=== PATIENT | male | born 1960 | race Caucasian/White ===

== ENCOUNTER 2018-07-15 21:49 | Inpatient (IN) ==
--- NOTE | 2018-07-15 22:43 | Emergency Department Note ---
Disposition Clinical Impression: Elevated troponin Chest pain Qualifiers: Chest pain type: precordial pain Qualified Code(s): R07.2 - Precordial pain Disposition: Admitted As Inpatient Condition: Good Referrals: Kita Harding DO [Primary Care Provider] - Forms: ED Satisfaction Letter Time of Disposition: 01:02 General Adult HPI - General Chief complaint: ED Chest Pain Stated complaint: "CP/High BP" Time Seen by Provider: 07/15/18 22:14 Source: patient Mode of arrival: ambulatory Limitations: no limitations - History of Present Illness HPI Narrative: This is a 57-year-old male who comes to the emergency department because about 75 minutes prior to arrival he experienced a headache he would rate as 8 out of 10 in severity located diffusely throughout his head that lasted for about 10 minutes and his decreased so that it is about 2 out of 10 now. He states that he also had slight chest tightness at that time which has almost completely resolved. He reports no shortness of breath. Pain Scale: 2 - Related Data Home Medications Medication Instructions Recorded Confirmed Aspirin [Lo-Dose Aspirin EC] 81 mg PO DAILY 07/04/16 07/16/18 Cetirizine HCl [Zyrtec] 10 mg PO DAILY 08/17/17 08/17/17 Atorvastatin Calcium [Lipitor] 20 mg PO QPM 07/16/18 07/16/18 Centrum Complete Multivit Tab 1 tab PO QDPC 07/16/18 07/16/18 Previous Rx's Medication Instructions Recorded Carvedilol [Coreg] 12.5 mg PO BIDWM #60 tablet 07/12/16 Allergies Allergy/AdvReac Type Severity Reaction Status Date / Time No Known Allergies Allergy Verified 08/17/17 10:58 All systems ED: reviewed and negative except as stated. Cardiovascular: Reports: chest pain Neurological: Reports: headache Past Medical History - Past Medical History Medical history: Reports: hypertension Surgical history: Reports: appendectomy, cholecystectomy, colectomy, herniorrhaphy, vasectomy, other Psychiatric history: Reports: no psych history - Social History Smoking Status: Never smoker Smokeless Tobacco Status: No Alcohol use: Reports: none Drug use: Reports: none Physical Exam - General Limitations: no limitations General appearance: alert, in distress (In minimal distress) - Head Head exam: atraumatic, normocephalic, normal inspection - Eye Eye exam: Present: normal appearance, PERRL, EOMI - Chest Chest inspection: Present: normal inspection, symmetric chest wall rise - Respiratory Respiratory exam: Present: normal lung sounds bilaterally - Cardiovascular Cardiovascular exam: Present: regular rate, normal rhythm, normal heart sounds - Abdominal Exam Abdominal exam: Present: soft, Non-Tender. Absent: tenderness, distention, guarding, rebound, rigidity - Neurological Exam Neurological exam: Present: alert, oriented X3, CN II-XII intact. Absent: motor sensory deficit - Psychiatric Psychiatric exam: Present: normal affect, normal mood - Skin Skin exam: Present: warm, dry, intact, normal color Course Course Narrative: This is an otherwise well-appearing 57-year-old male with symptoms concerning for subarachnoid hemorrhage or acute coronary syndrome. Vital Signs Temperature 98.2 F 07/15/18 21:52 Pulse Rate 72 07/15/18 21:52 Respiratory Rate 16 07/15/18 21:52 Blood Pressure 183/104 07/15/18 21:52 O2 Sat by Pulse Oximetry 98 07/15/18 21:52 Temperature 98.2 F 07/15/18 22:00 Pulse Rate 60 07/16/18 00:58 Respiratory Rate 20 07/16/18 00:58 Blood Pressure 133/98 07/16/18 00:58 O2 Sat by Pulse Oximetry 98 07/16/18 00:58 Oxygen Delivery Oxygen Delivery Room Air Medical Decision Making - [facility] Narrative Medical decision making narrative: This is a 57-year-old male with an elevated troponin. Because of the concern for non-ST elevation TX, heparin bolus was given, and the infusion was also started. He already took aspirin. I discussed his case with the on-call hospitalist, who accepted him for observation - Lab Data Lab results reviewed: Yes I reviewed the patient's lab results. Lab results narrative: CBC was unremarkable BMP was unremarkable Troponin was slightly elevated at 0.2 Result diagrams: 07/15/18 22:19 07/15/18 22:19 Lab Results 07/15/18 07/15/18 Range/Units 22:19 22:19 WBC 7.7 (4.3-11.1) K/mcL RBC 5.00 (4.19-5.50) M/mcL Hgb 16.2 (12.9-16.9) g/dL Hct 44.7 (37.5-50.1) % MCV 89.4 (83.0-100.0) fL MCH 32.4 (28.0-33.3) pg MCHC 36.2 H (31.6-35.5) g/dL RDW 11.6 (11.5-14.5) % Plt Count 184 (140-400) K/mcL MPV 10.2 (9.4-12.4) fL Immature Gran % 0.3 (0-4) % Seg Neutrophils % 61.5 % Lymphocytes % 26.3 % Monocytes % 9.4 % Eosinophils % 2.2 % Basophils % 0.3 % Neutrophils # 4.8 (1.6-8.9) K/mcL Lymphocytes # 2.0 (0.6-4.6) K/mcL Monocytes # 0.7 (0.0-1.3) K/mcL Eosinophils # 0.2 (0.0-0.6) K/mcL Basophils # 0.0 (0.0-0.2) K/mcL Sodium 136 (136-145) mEq/L Potassium 3.9 (3.5-5.1) mEq/L Chloride 104 (98-107) mEq/L Carbon Dioxide 23 (23-29) mEq/L BUN 20 (6-20) mg/dL Creatinine 1.00 (0.70-1.30) mg/dL Est GFR ( Amer) > 60 (> 60) Est GFR (Non-Af Amer) > 60 (> 60) BUN/Creatinine Ratio 20 (6-26) Glucose 115 H (70-105) mg/dL Calculated Osmolality 286 (280-300) Calcium 9.7 (8.6-10.3) mg/dL Troponin I 0.20 H* (< 0.04) ng/mL - Radiology Data Radiology results reviewed: Yes I reviewed the patient's radiology results. CT brain showed no abnormalities Chest x-ray showed no abnormalities - EKG Data EKG #1 EKG attestation: Yes I reviewed and interpreted this EKG. EKG results narrative: ECG shows sinus rhythm, 73 bpm, normal intervals, normal axis, slight ST elevations in 3 and aVF, no T-wave abnormalities, no reciprocal changes, prior EKG showing early repolarization EKG #2 EKG attestation: Yes I reviewed and interpreted this EKG. EKG results narrative: ECG shows sinus rhythm, 57 bpm, normal intervals, normal axis, no ST or T-wave abnormalities, the less than 1 mm elevation seen 90 minutes ago are now gone Critical Care Time Critical Care Time: Yes Total Critical Care Time: 20 Attestation: 20 minutes of critical care time was invested independent of separately billable procedures
[2018-07-15 22:55] LABS: Basophils % 0.3 %; Eosinophils # 0.2 K/mcL (0.0-0.6); Eosinophils % 2.2 %; Hematocrit 44.7 % (37.5-50.1); Hemoglobin 16.2 g/dL (12.9-16.9); Immature Granulocytes % 0.3 % (0-4); Lymphocytes % 26.3 %; Mean Corpuscular HGB Conc 36.2 g/dL (31.6-35.5); Mean Corpuscular Hemoglobin 32.4 pg (28.0-33.3); Mean Corpuscular Volume 89.4 fL (83.0-100.0); Mean Platelet Volume 10.2 fL (9.4-12.4); Monocytes # 0.7 K/mcL (0.0-1.3); Monocytes % 9.4 %; Neutrophils # 4.8 K/mcL (1.6-8.9); Platelet Count 184 K/mcL (140-400); Red Cell Distribution Width 11.6 % (11.5-14.5); Segmented Neutrophils % 61.5 %
[2018-07-15 23:10] LABS: BUN/Creatinine Ratio 20 (6-26); Blood Urea Nitrogen 20 mg/dL (6-20); Calcium 9.7 mg/dL (8.6-10.3); Carbon Dioxide 23 mEq/L (23-29); Chloride 104 mEq/L (98-107); Glucose 115 mg/dL (70-105); Osmolality,Calculated 286 (280-300); Potassium 3.9 mEq/L (3.5-5.1); Sodium 136 mEq/L (136-145); eGFR For Non-African Americans > 60 (> 60)
[2018-07-15] MEDS ORDERED: *HR* Heparin 5,000 UNIT/ML VIAL IVP ONE (23:20)
[2018-07-15] MEDS ORDERED: Aspirin 325 MG TABLET PO ONE (23:39)
[2018-07-16] MEDS ORDERED: Heparin 25,000 UNIT/500 ML D5W 25,000 UNIT/500 ML BAG IVC SCH (00:45)
[2018-07-16 01:19] LABS: INR 0.9; Prothrombin Time 10.4 Seconds (9.4-12.1)
[2018-07-16 01:22] LABS: Activated Partial Thrombo Time 32.9 Seconds (26.0-36.0)
[2018-07-16 01:27] LABS: Heparin anti-factor XA UFH 0.03 IU/mL (0.30-0.70)
--- NOTE | 2018-07-16 01:28 | Internal Med History&Physical ---
<Neel Keating Vi - Last Filed: 07/16/18 02:18> Date of Encounter: 07/16/18 Time of Encounter: 01:27 Internal Medicine - H&P: HPI Chief complaint: Headache/Chest Pain Admitted From: Emergency Dept Plans for Post Hospital Care: Home History of present illness: Mr. Urrutia is a 57 year old male with a past medical history of hypertension, hyperlipidemia, hemicolectomy. He presented to the emergency department tonight for headache and chest pain. He states he was sitting at his desk working around 8:00 when he all of a sudden felt very tense and flushed and he felt like his muscles were tight across his chest and he had a severe headache. He denies any shortness of breath, diaphoresis, or radiation of chest sensation. He checked his blood pressure home and found it to be elevated in the 180s over 110s. He took an extra baby aspirin and that should dose of Coreg and called a friend who insisted that she take him to the emergency department. In the emergency department he was given another dose of 325 aspirin and a heparin bolus. In the emergency department chest x-ray and head CT showed no acute process. However EKG showed normal sinus rhythm with uncertain ST elevation in lateral leads. Repeat EKGs demonstrated similar findings. CBC was in normal limits as was BMP, however troponin was elevated to 0.2. The patient does have a father with a history of CABG. The patient does not smoke, rarely drinks, does not use drugs. He also states he exercises consistently. Past Med Surg Social Fam HX - Past Medical History Medical history: hypertension Additional medical history: diverticulitis Psychiatric history: no psych history - Past Surgical History Surgical History: appendectomy, cholecystectomy, colectomy, herniorrhaphy, vasectomy, other Additional surgical history: diverticulitis, BILAT INGUINAL HERNIA REPAIR, HYDROCEILE, VASECTOMY - Social History Smoking Status: Never smoker Smokeless Tobacco Status: No Alcohol use: none Drug use: none - Family History Father Family Member Ethnicity: Non- Living Status: Hx Family Cardiac Disorders: Yes (CABG) Hx Family GI Disorders: Yes Mother Hx Family Cardiac Disorders: No Internal Medicine - H&P: Meds Aspirin [Lo-Dose Aspirin EC] 81 mg PO DAILY 07/04/16 [History] Carvedilol [Coreg] 12.5 mg PO BIDWM #60 tablet 07/12/16 [Rx] Cetirizine HCl [Zyrtec] 10 mg PO DAILY 08/17/17 [History] Atorvastatin Calcium [Lipitor] 20 mg PO QPM 07/16/18 [History] Centrum Complete Multivit Tab 1 tab PO QDPC 07/16/18 [History] 3 Allergy/AdvReac Type Severity Reaction Status Date / Time No Known Allergies Allergy Verified 08/17/17 10:58 All Systems PM: A 10-system review of systems was performed and is negative for pertinent findings except as documented above in the HPI. - Constitutional Vitals: Temp Pulse Resp BP Pulse Ox 98.2 F 60 20 133/98 98 07/15/18 22:00 07/16/18 00:58 07/16/18 00:58 07/16/18 00:58 07/16/18 00:58 Exam: Patient in no acute distress Alert and oriented 3 Affect normal Cranial nerves II through XII intact Mucous membranes moist Heart in regular rate and rhythm without murmur or gallop Lungs clear to auscultation bilaterally without wheeze or rales or rhonchi Abdomen soft and nontender with normal bowel sounds present, there is a large midline postsurgical scar Right hand is mildly swollen without pitting, the patient says it has been there for the past several years Bilateral lower extremities are 1+ pitting edematous Skin warm and dry Internal Med - H&P Results - Labs CBC & Chem 7: 07/15/18 22:19 07/15/18 22:19 - Assessment and plan (1) Chest pain Current Visit: Yes Status: Resolved Assessment and plan: Patient presented with chest pain in the setting of hypertension Patient has no cardiac history EKG suspicious for ST elevation Troponin elevated at 0.2 Differentials include ACS and hypertensive emergency Symptoms resolved in the ED Blood pressure currently stable Plan Aspirin and heparin bolus given in the ED Heparin drip started Continuous cardiac monitoring Cardiology consultation in the morning Trend troponins every 6 hours Qualifiers: Chest pain type: precordial pain Qualified Code(s): R07.2 - Precordial pain (2) Elevated troponin Current Visit: Yes Status: Acute Assessment and plan: Plan as seen above (3) Abnormal EKG Current Visit: Yes Status: Acute Assessment and plan: Plan as seen above (4) Hypertension Current Visit: Yes Status: Chronic Assessment and plan: Patient has history of chronic hypertension managed with home carvedilol We will continue carvedilol here Blood pressure currently stable Qualifiers: Hypertension type: essential hypertension Qualified Code(s): I10 - Essential (primary) hypertension (5) Hyperlipidemia Current Visit: No Status: Chronic Assessment and plan: Patient mentions history of hyperlipidemia Patient takes Lipitor at home We will continue here Qualifiers: Hyperlipidemia type: unspecified Qualified Code(s): E78.5 - Hyperlipidemia , unspecified (6) Headache Current Visit: Yes Status: Resolved Assessment and plan: Patient presented with headache in the setting of elevated blood pressure Patient does not have history of the symptoms Headache resolved in the ED with improvement in blood pressure Differentials include hypertensive emergency and cerebral infarct Head CT was negative and patient does not exhibit any focal deficits Continue to monitor and control blood pressure Qualifiers: Headache type: unspecified Headache chronicity pattern: acute headache Intractability: not intractable Qualified Code(s): R51 - Headache - Time Spent With Patient Total time spent is greater than 50% in coordination of care (as documented) at patient's floor/unit and/or counseling patient: <Jb Garza A - Last Filed: 07/16/18 02:52> Date of Encounter: 07/16/18 Internal Medicine - H&P: HPI History of present illness: Mr. Urrutia is a 57 year old male All Systems PM: A 10-system review of systems was performed and is negative for pertinent findings except as documented above in the HPI. - Constitutional Vitals: Temp Pulse Resp BP Pulse Ox 98.5 F 62 16 161/106 98 07/16/18 01:37 07/16/18 01:37 07/16/18 01:37 07/16/18 01:37 07/16/18 01:37 Internal Med - H&P Results - Labs CBC & Chem 7: 07/15/18 22:19 07/15/18 22:19 - Assessment and plan (1) Elevated troponin Current Visit: Yes Status: Acute (2) Chest pain Current Visit: Yes Status: Resolved Qualifiers: Chest pain type: precordial pain Qualified Code(s): R07.2 - Precordial pain (3) Abnormal EKG Current Visit: Yes Status: Acute (4) Hypertension Current Visit: Yes Status: Chronic Qualifiers: Hypertension type: essential hypertension Qualified Code(s): I10 - Essential (primary) hypertension (5) Hyperlipidemia Current Visit: No Status: Chronic Qualifiers: Hyperlipidemia type: unspecified Qualified Code(s): E78.5 - Hyperlipidemia , unspecified (6) Headache Current Visit: Yes Status: Resolved Qualifiers: Headache type: unspecified Headache chronicity pattern: acute headache Intractability: not intractable Qualified Code(s): R51 - Headache - Time Spent With Patient Total time spent is greater than 50% in coordination of care (as documented) at patient's floor/unit and/or counseling patient: - Attending Attestation Patient seen and examined. Chart reviewed. Case discussed with resident. Agree with assessment and plan. In short patient is a pleasant 57-year-old male with a past medical history of hypertension, hyperlipidemia who presented to the ED after a headache and what he believed to be a sensation that his blood pressure was high described as increased pressure in his head and neck. Patient denies any chest pain per se. Patient decided to come into the hospital today because his is out of town and did not to be at home alone with current symptoms. Upon arrival patient was found to have a elevated troponin of 0.2. EKG was performed which showed less than [address] elevations in leads 1, V3, V4 and V5. Patient is a never smoker, drinks beer occasionally on the weekend and exercises regularly. He does have a family history of coronary artery disease in his father who underwent CABG at the age of 69. We will admit patient for observation and rule out ACS. We will trend troponin. Obtain echocardiogram. Cardiology consult due to abnormal EKG and elevated troponins.
[2018-07-16] MEDS ORDERED: Naloxone 0.4 MG/ML INJ IVP PRN (01:29)
[2018-07-16 05:15] LABS: Basophils % 0.6 %; Eosinophils # 0.2 K/mcL (0.0-0.6); Eosinophils % 2.6 %; Hematocrit 43.5 % (37.5-50.1); Hemoglobin 15.7 g/dL (12.9-16.9); Immature Granulocytes % 0.3 % (0-4); Lymphocytes # 2.1 K/mcL (0.6-4.6); Lymphocytes % 29.5 %; Mean Corpuscular HGB Conc 36.1 g/dL (31.6-35.5); Mean Corpuscular Hemoglobin 31.9 pg (28.0-33.3); Mean Corpuscular Volume 88.4 fL (83.0-100.0); Mean Platelet Volume 10.1 fL (9.4-12.4); Monocytes # 0.6 K/mcL (0.0-1.3); Monocytes % 7.9 %; Neutrophils # 4.1 K/mcL (1.6-8.9); Platelet Count 166 K/mcL (140-400); Red Blood Count 4.92 M/mcL (4.19-5.50); Red Cell Distribution Width 11.7 % (11.5-14.5); Segmented Neutrophils % 59.1 %
[2018-07-16 05:36] LABS: BUN/Creatinine Ratio 20 (6-26); Blood Urea Nitrogen 16 mg/dL (6-20); Calcium 9.4 mg/dL (8.6-10.3); Carbon Dioxide 23 mEq/L (23-29); Chloride 107 mEq/L (98-107); Glucose 104 mg/dL (70-105); Osmolality,Calculated 289 (280-300); Potassium 3.6 mEq/L (3.5-5.1); Sodium 139 mEq/L (136-145); eGFR For Non-African Americans > 60 (> 60)
--- NOTE | 2018-07-16 06:53 | Event Note ---
Date of Encounter: 07/16/18 Time of Encounter: 06:52 Was notified by the nurse for a jump and troponin from 0.2-8.2. Repeat vitals were stable from side from a mildly elevated blood pressure. Patent was asymptomatic and chest pain-free. A repeat EKG was performed which showed no ST or T-wave changes. Cardiology was consulted and will have patient seen early in the morning. Patient currently nothing by mouth.
--- NOTE | 2018-07-16 07:53 | Cardiology Consult Note ---
<Shon Washington - Last Filed: 07/16/18 08:51> Date of Encounter: 07/16/18 Time of Encounter: 07:50 Assessment and Plan (1) NSTEMI (non-ST elevated myocardial infarction) Current Visit: Yes Status: Acute Per Cardiology: Initial troponin 0.20 and now up to 8.20. Currently chest pain-free. On aspirin, statin, beta sienna, heparin drip. Chest x-ray stable. Head CT with no acute findings. Echo pending. I had lengthy discussion with patient and and recommendations proceed with left heart catheterization for further ischemic evaluation. They are agreeable to proceed. Discussed with Dr. Brooke and Dr. Yesenia Silva. Further recommendations after echo and catheterization. Cardiac rehabilitation consult placed. Discussion w patient/family: The assessment and plan as outlined above was discussed with the patient and/or family members who expressed understanding and agreement. All questions were answered. Thank you for involving us in the care of your patient. Please call with any questions. History of Present Illness Consult date: 07/16/18 Requesting physician: Jb Garza Consult reason: NSTEMI Chief complaint: CP History of present illness: Mr. Urrutia is a 57 year old male with relevant past medical history of hypertension and recent diagnosis of hyperlipidemia. Cardiology consult for chest pain and non-STEMI. Patient denies any concerns or complaints prior to event yesterday evening. He reports his at home pain pills and had sudden onset of bilateral neck burning sensation with radiation to his head with headache. He denied any chest pain. He reports about 8 out of 10 overall discomfort. He reports blood pressure systolically was in the 170s and took an extra dose of his beta sienna and took aspirin. He reports total time. If symptoms about 45 minutes. He denied any palpitations, shortness of breath, dizziness. Denies any recent infectious process. He reports active about 3 times per week able to bike up to about 30 miles. 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 He reports family history with father with CAD with CABG at age 69. He denies any smoking history. Denies any known history of diabetes mellitus. Denies any active bleeding or blood loss. Currently denies any discomfort or symptoms. Past Med Surg Social Fam HX - Past Medical History Attestation: Yes The following information was validated with the patient. Source: patient, old records reviewed Medical history: hyperlipidemia, hypertension Additional medical history: diverticulitis Psychiatric history: no psych history - Past Surgical History Surgical History: appendectomy, cholecystectomy, colectomy, herniorrhaphy, vasectomy, other Additional surgical history: diverticulitis, BILAT INGUINAL HERNIA REPAIR, HYDROCEILE, VASECTOMY - Social History Smoking Status: Never smoker Smokeless Tobacco Status: No Alcohol use: none Drug use: none - Family History Mother Hx Family Cardiac Disorders: No Father Family Member Ethnicity: Non- Living Status: Cause of : Pulmonary Embolus Hx Family Cardiac Disorders: Yes (CABG) Hx Family GI Disorders: Yes Medications and Allergies Aspirin [Lo-Dose Aspirin EC] 81 mg PO DAILY 07/04/16 [History] Carvedilol [Coreg] 12.5 mg PO BIDWM #60 tablet 07/12/16 [Rx] Cetirizine HCl [Zyrtec] 10 mg PO DAILY 08/17/17 [History] Atorvastatin Calcium [Lipitor] 20 mg PO QPM 07/16/18 [History] Multivit-Min/FA/Lycopen/Lutein [A Thru Z Select Multivit Tab] 1 tab PO DAILY [History] 3 Allergy/AdvReac Type Severity Reaction Status Date / Time No Known Allergies Allergy Verified 08/17/17 10:58 All Systems Review: The remainder of the systems were reviewed and are negative - Constitutional Constitutional: headache(s) - Cardiovascular Cardiovascular: as per HPI Physical Examination Vital Signs, Last 4 Hours Temp Pulse Resp BP Pulse Ox 07/16/18 07:00 98.3 F 76 15 120/81 97 07/16/18 06:04 74 14 161/96 98 General: Conversant, No Apparent Distress HEENT: Atraumatic, Normocephaly, Mucus Membranes Moist Neck: No JVD, Normal carotid pulses Cardiac: Reg Rate and Rhythm, Normal S1 and S2, No Murmur Lungs: Normal Breath Sounds, No Wheeze, Rales, Rhonchi Neuro: Alert and responsive, No focal deficits noted Abdomen: Soft, Non-Tender Skin: No rashes noted on visualized skin Musculoskeletal: No Chest Wall Tenderness Extremities: No Clubbing, No Cyanosis, No Edema, Normal Pulses Results 07/16/18 04:09 07/16/18 04:09 Lab Results Laboratory Tests 07/15/18 07/16/18 07/16/18 22:19 00:41 04:09 WBC Hgb Hct INR 0.9 Creatinine Est GFR (Non-Af Amer) Troponin I 0.20 H* 8.10 H* 07/16/18 07/16/18 04:09 04:09 WBC 6.9 Hgb 15.7 Hct 43.5 INR Creatinine 0.81 Est GFR (Non-Af Amer) > 60 Troponin I ITS Impressions Chest X-Ray 07/15/18 22:29 IMPRESSION: No acute abnormality detected. D/ / Joe Alfonso MD / Joe Alfonso MD Interpreting Provider: Joe Alfonso MD Head CT 07/15/18 22:29 IMPRESSION: No acute intracranial abnormality. D/ / Joe Alfonso MD / Joe Alfonso MD Interpreting Provider: Joe Alfonso MD Active Medications Aspirin (Aspirin Ec) 81 mg PO DAILY KEYONNA Stop: 01/15/19 09:01 Atorvastatin Calcium (Lipitor) 20 mg PO QPM KEYONNA Stop: 01/15/19 18:01 Carvedilol (Coreg) 12.5 mg PO BIDWM KEYONNA PRN Reason: Protocol Stop: 01/15/19 08:01 Last Admin: 07/16/18 06:34 Dose: 12.5 mg Heparin Sodium/Dextrose (Heparin 25,000 Unit/500 Ml D5w) 25,000 unit in 500 mls @ 27.992 mls/hr IVC .[id number] KEYONNA; 14 UNIT/KG/HR PRN Reason: Protocol Stop: 01/15/19 00:46 Last Admin: 07/16/18 01:37 Dose: 14 unit/kg/hr, 27.992 mls/hr Naloxone HCl (Narcan) 0.4 mg IVP Q2MIN PRN PRN Reason: SEE COMMENTS Stop: 01/15/19 01:30 - Imaging and Cardiology Chest Xray: report reviewed Echo: pending Cardiac cath: pending - EKG Interpretation EKG results cardiology: personally reviewed (reviewed with Dr. Brooke), sinus rhythm Consult Discharge Plan - Plan Referrals: Kita Harding, DO [Primary Care Provider] - 07/24/18 9:30 am <Jim Brooke - Last Filed: 07/16/18 17:05> Date of Encounter: 07/16/18 - Attending Attestation Patient was seen and evaluated independently by me. Findings, assessment and plan were discussed at length with patient, questions answered. Agree with nurse practitioner's documentation. Addition as follows, 57 yo physically active CM ho HTN and HLD. P/w acute onset of neck burning and headache at rest last night with BP 170s/100s, which subsided afte ASA, then recurred on climbing stairs. ECG dynamic change am, loss of R on V1/2 with qR pattern on V2. Trop max 8, downtrending. However, LHC revealed no obstructive epicardial lesion, TTE nl EF w/o RMWA, RV fnx nl. A: NSTEMI without obstructive epicardial CAD, ddx plaque rupture with resolution of thrombosis, susana-plaque spasm or induced by vasoactive toxin, no clear angiographical evidence of SCAD HTN HLD P: repeat ECG, tele overnight DAPT at least 1 month, f/u Cardiology clinic for possible longer duration if no bleeding (ideally 1 yr) high intensity statin ask pt for home BP monitoring Jim Brooke MD, PhD Assessment and Plan Discussion w patient/family: The assessment and plan as outlined above was discussed with the patient and/or family members who expressed understanding and agreement. All questions were answered. Thank you for involving us in the care of your patient. Please call with any questions. History of Present Illness History of present illness: Mr. Urrutia is a 57 year old male All Systems Review: The remainder of the systems were reviewed and are negative Physical Examination Vital Signs, Last 4 Hours Pulse Resp BP Pulse Ox 07/16/18 15:00 64 16 123/81 96 Results 07/16/18 04:09 07/16/18 04:09
[2018-07-16] MEDS: Aspirin Enteric Coated 81 MG Tablet PO SCH (07:59)
[2018-07-16] MEDS ORDERED: 0.9 % Sodium Chloride 1,000 ML ONE ×2 (10:37→10:42)
[2018-07-16] MEDS ORDERED: ISOVUE-370 200 ML INFUS..BTL IV ONE (10:37)
[2018-07-16] MEDS ORDERED: *HR* Heparin 10,000 UNIT/10 ML VIAL ONE (10:37)
[2018-07-16] MEDS ORDERED: Nitroglycerin 1,000 MCG/10 ML VIAL IV ONE (10:37)
[2018-07-16] MEDS ORDERED: Heparin 1,000 UNITS/500 mL 500 ML ONE (10:37)
--- NOTE | 2018-07-16 13:16 | Pre-Sedation Evaluation ---
Pre-sedation evaluation - Pre-sedation checklist Date of procedure: 07/16/18 Procedure: left heart cath Recent Vitals: Last Vital Signs Temp 98.3 F 07/16/18 07:00 Pulse 76 07/16/18 07:00 Resp 15 07/16/18 07:00 BP 120/81 07/16/18 07:00 Pulse Ox 97 07/16/18 07:00 H&P (including ROS) documented in medical record: Yes Previous reaction to sedatives/anesthetics: No Dietary Status: NPO after Midnight Airway Assessment: Patient can open mouth completely, TMJ function normal, Micrognathia (under-bite, receding chin) absent, Neck with adequate range of motion Dentition: No loose teeth or bridges Possible difficult airway: No ASA Classification *see protocol: CLASS II-Mild systemic disease Plan of Care: Pt appropriate candidate for procedure/moderate/conscious sedation , Risks/benefits of procedure/sedation discussed w/ patient/family Cardiac Registry (Cardio Only) - Functional Capacity Functional Capacity: < 4 METS - Clincal Frailty Scale Clinical Frailty Scale: Vulnerable
[2018-07-16] MEDS ORDERED: *HR* FentaNYL (PF) 100 MCG/2 ML VIAL ONE (13:38)
[2018-07-16] MEDS ORDERED: *HR* Midazolam HCl 2 MG/2 ML VIAL ONE ×2 (13:38→13:49)
--- NOTE | 2018-07-16 14:29 | Invasive Diagnostic Lab Proc ---
Name: Steven Urrutia Date of Study: 07/16/2018 Date: 1960 Ht: 72.0in Medical Record#: [id number] Age: 57 Wt: 216.49lb Gender: Male BSA: 2.2 Order #: [id number] BMI: 29.32 Physicians Procedure Physician: Laura Silva MD, [facility] Referring MD: Referring MD: Staff Name Position Time In SilverioRc RN Grocery Store Clerk 01:36 PM Isabel Barrett RT (R) Scrub 01:36 PM Rehan Willis RN Monitor 01:36 PM Indications Indication Non-Stemi Procedures Performed Procedure L HRT ARTERY/VENTRICLE ANGIO Pre-Procedure Checklist Informed consent is complete signed and on chart. H&P is on chart. ID band is on and ID verified with patient. Patient NPO for procedure The procedure was described for the patient and questions were answered. Blood Pressure: 120/81 ECG is on chart. Plan of Care Patient will tolerate the procedure without complications. Adequate level of comfort will be maintained. Hemodynamics will remain stable Patient will recover from procedure without complications. Respiratory function will be maintained. Cardiac rhythm will remain stable. Patient temperature will be maintained. Patient and/or family have verbalized understanding of the procedure. Patient Education Chief Complaint/Reason for Test: Cardiac Cath Developmental Category: Adult (18-64 years) Developmentally Appropriate for Age: Yes Learning Barriers: None Education Needs: Procedure Education Method: Verbal Information Taught: Cardiac Cath Educational Evaluation: Able to repeat information Intravenous Access Time IV Size Location DC'd Fluid/Drip Rate Units RN Started with 20g 1 1/4" Rt Antecubital 0.9NaCl 25 ml/hr Allergies No Known Allergies Vital Signs Time BP (mmHg) HR (bpm) O2 Sat. RR (bpm) LOC 09:14 AM 120 / 81 75 97 % 15 5 = Fully awake and oriented or at pre-proc level 01:45 PM / % 5 = Fully awake and oriented or at pre-proc level 01:45 PM / % 4 = Oriented but drowsy 01:38 PM 161 / 111 82 98 % 17 01:43 PM 156 / 101 84 99 % 10 01:48 PM 139 / 99 82 99 % 7 01:53 PM 129 / 87 74 98 % 9 01:58 PM 133 / 92 82 98 % 9 02:03 PM 137 / 91 82 98 % 19 02:08 PM 124 / 79 75 97 % 11 Procedural Medications Time Medication Dose Units Method Given By 01:44 PM Oxygen 2 L/min nasal cannula Rc Sawyer RN 01:44 PM Versed 2 mg Intravenous Rc Sawyer RN 01:44 PM Fentanyl 50 mcg Intravenous Rc Sawyer RN 01:49 PM Versed 1 mg Intravenous Rc Sawyer RN 01:49 PM Fentanyl 25 mcg Intravenous Rc Sawyer RN 01:51 PM Lidocaine 2% 14 ml Subcutaneous Laura Silva MD, [facility] ASA Classification: CLASS II- Mild systemic disease (i.e. well-controlled diabetes, hypertension, asthma, cigarette smoking) Santo Score Preprocedure Postprocedure Activity 2- Moves 4 extremities sustained head lift Activity Circulation 2- SBP +/= 20 points of pre-anesthetic level Circulation Consciousness 2- Awake and alert oriented x 3 Consciousness O2 Saturation 2- Able to maintain O2 satruation of 92% on room air O2 Saturation Respiratory 2- Able to deep breathe and cough well Respiratory Total Score 10 Total Score Contrast Agent: Isovue Diagnostic Contrast: 76 ml Total Contrast: 76 ml Fluoro Dose: 2837 mGy Procedure Log Time Note Enter By 11:27 AM CathStat 01:36 PM [facility] metallurgical laboratory assistant 2 [facility] Rc Sawyer RN Position: Grocery Store Clerk [facility]: 13:36 [facility] PM Isabel Barrett RT (R) Position: Scrub Time in: 13:36 [facility] 01:37 PM Rehan Willis RN Position: Monitor Time in: 13:36 [facility] :37 PM Patient charges- Angio tray pack, Navilyst 3mm J, Pulse Oximetry and ACIST tubing and transducer [facility] 01:37 PM Vitals capture started with the following parameters, Patient=Adult, Interval=5 min, Initial Kskcchxa=678 mmHg, Deflation Rate=5 mmHg, Cuff placed on Right Arm 01:38 PM HR=82 bpm, HBSR=143/111 mmhg, SpO2=98.0 %, Resp=17 B/min, EtCO2=31 mmHg 01:43 PM HR=84 bpm, MSQI=525/101 mmhg, SpO2=99.0 %, Resp=10 B/min, EtCO2=29 mmHg 01:44 PM Hair removed from procedure site in procedure lab using clippers. Bilateral groin prepped with Chloraprep by Rehan Willis RN, then patient was draped. Skin intact. PM Physican responded and notified patient is ready :44 [facility] PM ASA Class CLASS II- Mild systemic disease (i.e. well-controlled diabetes, hypertension, asthma, cigarette smoking) [facility] PM Meet and greet completed PM Sign in performed according to hospital policy. Informed consent was obtained. PM Procedure start :[facility] PM Time: :44 Oxygen on at 2 L/min per nasal cannula by Rc Sawyer RN [facility] PM Time: :44 Versed 2 mg Intravenous Given by Rc Sawyer RN [facility] PM Time: :44 Fentanyl 50 mcg Intravenous Given by Rc Sawyer RN [facility] PM Time: :44 Patient comfortable and pain free: Yes [facility] 45 PM Time: :45LOC: 5 = Fully awake and oriented or at pre-proc level [facility] 45 PM Recorded ECG: HR=81 Condition=Condition 1 :45 PM Case Start :46 PM Clinical Presentation: Non-STEMI :48 PM HR=82 bpm, RZKB=006/99 mmhg, SpO2=99.0 %, Resp=7 B/min, EtCO2=35 mmHg, Comment=NSR :49 PM Time: 13:49 Versed 1 mg Intravenous Given by Rc Sawyer RN [facility] :49 PM Time: 13:49 Fentanyl 25 mcg Intravenous Given by Rc Sawyer RN [facility] :51 PM Time out was performed according to hospital policy. Conscious sedation and anesthesia was achieved (see medication log with in this report above) :52 PM Time: 13:51 14 ml Lidocaine 2% to right groin Subcutaneous Given by Laura Silva MD, [facility]:52 PM Access obtained by percutaneous puncture. 5Fr 10cm Terumo [place] sheath placed in right Femoral artery. [id number] jcallihan 01:53 PM 5Fr FL 4 catheter inserted over the wire DN jcallihan 01:53 PM HR=74 bpm, RVJD=016/87 mmhg, SpO2=98.0 %, Resp=9 B/min, Comment=NSR 01:53 PM Recorded Pressure: Ao, HR=75, Condition=Condition 1 (Aorta) Ao 127/87/106 01:53 PM LCA angiography performed in multiple views. [email or web address] 01:55 PM Catheter removed [email or web address] 01:55 PM Coronary Dominance: right [email or web address] 01:55 PM 5Fr FR 4 catheter inserted over the wire DN jcallihan 01:56 PM RCA angiography performed in multiple views. [email or web address] 01:57 PM Recorded Pressure: Ao, HR=75, Condition=Condition 1 (Aorta) Ao 103/44/80 01:57 PM Catheter removed jcallihan 01:57 PM 5Fr Pigtail catheter inserted over the wire DN jcallihan 01:57 PM Catheter crossed the aortic valve and was selectively placed in the left ventricle. Pressures recorded on pullback for left heart catheterization. jcallihan 01:58 PM Bolus angiogram of left Ventricle complete: 8 ml/sec for a total of 24 mls jcallihan 01:58 PM HR=82 bpm, XKMM=226/92 mmhg, SpO2=98.0 %, Resp=9 B/min, Comment=NSR 01:59 PM Pressure channel 1 zeroed. 01:59 PM Recorded Pressure: LV, HR=86, Condition=Condition 1 (Left Ventricle) LV 133/-13/5 01:59 PM Recorded Pressure: LV, Ao, HR=82, Condition=Condition 1 (Left Ventricle) LV 107/14/17, (Aorta) Ao 111/80/96 02:00 PM Time: 13:45LOC: 4 = Oriented but drowsy jcallihan 02:00 PM Time: 13:45 Patient comfortable and pain free: Yes [email or web address] 02:00 PM Catheter removed jcallihan 02:03 PM HR=82 bpm, MTMY=540/91 mmhg, SpO2=98.0 %, Resp=19 B/min, EtCO2=36 mmHg, Comment=NSR 02:04 PM Recorded Pressure: Ao, HR=84, Condition=Condition 1 (Aorta) Ao 159/66/104 02:04 PM Procedure completed at 14:04 07/16/2018 [email or web address] 02:04 PM Did you address YANG flow and Dominance? Yes [email or web address] 02:05 PM Sign out completed: Radiation Dose 207.95 mGy, 2836.88 cGy/cm2 Fluoro Time: 1.5 Isovue 370 - 200ml contrast 76 ml given by Laura Silva MD, [facility]. Complications: None. 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 Cardiac Rehab Consult needed: NoConfirmed administered medications: Yes jcallihan 02:06 PM Isovue 370 - 200ml,1 Bottle(s) used. [email or web address] 02:06 PM Arterial sheath pulled, Mynx closure device used and was Successful [id number] S/N. jcallihan 02:07 PM Estimated Blood Loss: minimal jcallihan 02:07 PM Post ECG NSR jcallihan 02:07 PM Post Blood Pressure 137/91 jcallihan 02:07 PM 14:07 Post Pulses Bilateral DP 2+ jcallihan 02:07 PM Information taught Cardiac Cath and Mynx jcallihan 02:07 PM Education needs Procedure and Plan of Care jcallihan 02:07 PM Learning barriers :None jcallihan 02:07 PM Education Methods Verbal jcallihan 02:07 PM Education evaluation Able to repeat information jcallihan 02:08 PM Site status No bleeding/hematoma - Rt Groin as reported by Isabel Barrett RT (R) at 14:07 jcallihan 02:08 PM Opsite applied jcallihan 02:08 PM Plavix, Effient or Brilinta given No jcallihan 02:08 PM Family placed in consult room. jcallihan 02:08 PM HR=75 bpm, GVBE=817/79 mmhg, SpO2=97.0 %, Resp=11 B/min, EtCO2=40 mmHg, Comment=NSR 02:18 PM Report given to Mariann CHARLTON Pt taken to Room #39. 14:18 jcallihan 02:18 PM Patient out of room: 14:18 jcallihan 02:18 PM Complications: None jcallihan Complications Complication None None Hemodynamics Pressures Site Systolic/A Wave Diastolic/V Wave Mean AO 127 87 106 AO 103 44 80 LV 133 -13 5 LV 107 14 17 AO 111 80 96 AO 159 66 104 Post Procedure Information Blood Pressure: 137/91 mmHg Rhythm: NSR Post procedural instructions were given Closure Device Time Device Success/Fail 07/16/2018 2:10:00 PM MynxGrip Successful Site Checks Time Location Status Staff Sheath In? Note 02:07 PM Rt Groin No bleeding/hematoma Isabel Barrett RT (R) NO Pulses Time Site Pre-Procedure Post-Procedure Note Bilateral DP & PT 2+ Bilateral radial 2+ 2:07:00 PM Bilateral DP 2+ 2+ Updated by Rc Sawyer RN on 07/16/2018 2:21:39 PM electronically signed on 07/16/2018 2:22:31 PM with status of Final
--- NOTE | 2018-07-16 15:09 | Event Note ---
Date of Encounter: 07/16/18 Time of Encounter: 15:00 - Cardiology Event Note Reviewed and discussed with Dr. Laura Silva and Dr. Brooke, no lesions noted. Will proceed with high-dose statin, BENTON inhibitor, continue beta sienna, continued aspirin, recommend Plavix for these one month. We will discontinue IV heparin drip. Echo pending. We will repeat ECG. Recommend monitor overnight on telemetry. Possible discharge home tomorrow. All questions answered.
[2018-07-16] MEDS ORDERED: Acetaminophen 325 MG TABLET PO PRN (17:48)
[2018-07-16] MEDS ORDERED: Aspirin Enteric Coated 325 MG Tablet PO ONE (23:20)
[2018-07-17 04:29] LABS: Chol/HDL Ratio 3.5 (0-4.9)
[2018-07-17] MEDS: Aspirin Enteric Coated 81 MG Tablet PO SCH (09:49)
[2018-07-17 11:30] VITALS: BP 145/75
[2018-07-17 12:09] LABS: Hematocrit 41.6 % (37.5-50.1); Hemoglobin 15.2 g/dL (12.9-16.9); Mean Corpuscular HGB Conc 36.5 g/dL (31.6-35.5); Mean Corpuscular Hemoglobin 32.2 pg (28.0-33.3); Mean Corpuscular Volume 88.1 fL (83.0-100.0); Mean Platelet Volume 9.7 fL (9.4-12.4); Platelet Count 149 K/mcL (140-400); Red Blood Count 4.72 M/mcL (4.19-5.50); Red Cell Distribution Width 11.8 % (11.5-14.5)
[2018-07-17 12:27] LABS: BUN/Creatinine Ratio 18 (6-26); Blood Urea Nitrogen 16 mg/dL (6-20); Calcium 8.9 mg/dL (8.6-10.3); Carbon Dioxide 25 mEq/L (23-29); Chloride 108 mEq/L (98-107); Glucose 83 mg/dL (70-105); Osmolality,Calculated 286 (280-300); Potassium 4.1 mEq/L (3.5-5.1); Sodium 138 mEq/L (136-145); eGFR For Non-African Americans > 60 (> 60)
--- NOTE | 2018-07-17 13:06 | Cardiology Progress Note ---
Date of Encounter: 07/17/18 Time of Encounter: 11:30 Assessment and Plan (1) NSTEMI (non-ST elevated myocardial infarction) Current Visit: Yes Status: Acute Per Cardiology: -Troponins 0.2, 8.1, 5.43, 3.68. -Denies chest pain. -S/p [facility] yesterday with angiographically normal coronaries. -TTE with LVEF 55-60%, trace MR, no segmental wall motion abnormalities noted. -ON asa, statin, BB, plavix, jacob inhibitor. -Right groin access site with very mild ecchymosis note, no hematoma. Right groin site access management reviewed with patient and . -Recommend asa and plavix for at least one month, discussed with patient and . -Cardiology will sign off and will follow in outpatient setting, follow up set. (2) Hypertension Current Visit: Yes Status: Chronic Per cardiology: -Known HTN. -BP hypertensive on admission. -Improved, currently 100-140s systolic. -Lisinopril has been added to regimen. -Will continue to monitor BP in outpatient setting. Qualifiers: Hypertension type: essential hypertension Qualified Code(s): I10 - Essential (primary) hypertension Discussion w patient/family: The assessment and plan as outlined above was discussed with the patient and/or family members who expressed understanding and agreement. All questions were answered. Thank you for involving us in the care of your patient. Please call with any questions. Discussed and reviewed with . Subjective Principal diagnosis: NSTEMI, HTN Interval history: Patient is s/p [facility] yesterday, no intervention. Patient denies chest pain. Denies issues walking or using right leg. Objective Vital Signs, Last 4 Hours Temp Pulse Resp BP Pulse Ox 07/17/18 11:29 99.3 F 68 16 145/75 97 General: Conversant, No Apparent Distress HEENT: Atraumatic, Normocephaly, Mucus Membranes Moist Neck: No JVD, Normal carotid pulses Cardiac: Reg Rate and Rhythm, Normal S1 and S2, No Murmur Lungs: Normal Breath Sounds, No Wheeze, Rales, Rhonchi Neuro: Alert and responsive, No focal deficits noted Abdomen: Soft, Non-Tender Skin: No rashes noted on visualized skin, Other (Right groin access site with very mild ecchymosis, no hematoma. ) Musculoskeletal: No Chest Wall Tenderness Extremities: No Clubbing, No Cyanosis, No Edema, Normal Pulses Results 07/17/18 12:00 07/17/18 12:00 Lab Results Active Medications Acetaminophen (Tylenol) 650 mg PO Q6HR PRN PRN Reason: Fever Stop: 01/15/19 17:49 Last Admin: 07/16/18 17:58 Dose: 650 mg Aspirin (Aspirin Ec) 81 mg PO DAILY KEYONNA Stop: 01/15/19 09:01 Last Admin: 07/17/18 09:49 Dose: 81 mg Atorvastatin Calcium (Lipitor) 80 mg PO QPM KEYONNA Stop: 01/15/19 18:01 Last Admin: 07/16/18 17:19 Dose: 80 mg Carvedilol (Coreg) 12.5 mg PO BIDWM KEYONNA PRN Reason: Protocol Stop: 01/15/19 08:01 Last Admin: 07/17/18 09:49 Dose: 12.5 mg Clopidogrel Bisulfate (Plavix) 75 mg PO DAILY [facility] Stop: 01/16/19 09:01 Last Admin: 07/17/18 09:49 Dose: 75 mg Lisinopril (Zestril) 2.5 mg PO DAILY [facility] PRN Reason: Protocol Stop: 01/15/19 14:46 Last Admin: 07/17/18 09:49 Dose: 2.5 mg Naloxone HCl (Narcan) 0.4 mg IVP Q2MIN PRN PRN Reason: SEE COMMENTS Stop: 01/15/19 01:30 Laboratory Tests 07/15/18 07/16/18 07/16/18 22:19 04:09 10:02 Hgb Creatinine Troponin I 0.20 H* 8.10 H* 5.43 H* 07/16/18 07/17/18 07/17/18 16:08 12:00 12:00 Hgb 15.2 Creatinine 0.87 Troponin I 3.68 H* - Imaging and Cardiology Chest Xray: report reviewed Echo: report reviewed Cardiac cath: report reviewed - EKG Interpretation EKG results cardiology: other (Telemetry reviewed with average HR previous 12 hours noted to be 56, SB. PVCs, PACS noted.) Consult Discharge Plan - Plan Referrals: Kita Harding DO [Primary Care Provider] - 07/24/18 9:30 am
--- NOTE | 2018-07-17 13:22 | Discharge Summary ---
- NOTES TO OUTPATIENT PROVIDER Notes to Outpatient Provider: Presented with chest pain, elevated troponins with a peak of 8.1; subsequent troponins 5.43, 3.68. S/P [facility] yesterday with angiographically normal coronaries. DX NSTEMI. CP free on day of d/c and hemodynamically stable. Received new Rx for BENTON I as he was HTN on admission Orders not resulted at time of discharge: Pending orders 07/16/18 15:03 ECG 12 lead ECG [ECG] Routine Date of Encounter: 07/17/18 Time of Encounter: 13:15 - Discharge Diagnosis (1) NSTEMI (non-ST elevated myocardial infarction) Priority: Primary Status: Acute Assessment and Plan: Patient presented with chest pain in the setting of hypertension No prior cardiac history, minimal risk factors Troponin elevated at 0.2, 8.1, 5.43, 3.68 [facility] with normal coronaries TTE--LVEF 55-60%, trace MR, no segmental wall motion abnormalities noted. per cardio; continue ASA, Plavix, Statin, BB, ACEI; Plavix x 1 month f/u with cardiology outpatient; order set per cardiology (2) Elevated troponin Priority: Secondary Status: Acute Assessment and Plan: downtrending, [facility] with normal coronaries (3) Chest pain Priority: Secondary Status: Resolved Qualifiers: Chest pain type: precordial pain Qualified Code(s): R07.2 - Precordial pain (4) Abnormal EKG Priority: Secondary Status: Acute (5) Hypertension Priority: Secondary Status: Chronic Assessment and Plan: Patient has history of chronic hypertension managed with home carvedilol, HTN on admission, BENTON I added. HTN improving. Continue anti-HTN meds at d/c Qualifiers: Hypertension type: essential hypertension Qualified Code(s): I10 - Essential (primary) hypertension (6) Hyperlipidemia Priority: Secondary Status: Chronic Qualifiers: Hyperlipidemia type: unspecified Qualified Code(s): E78.5 - Hyperlipidemia , unspecified (7) Headache Priority: Secondary Status: Resolved Assessment and Plan: H/A in the setting of HTN Head CT was negative and patient does not exhibit any focal deficits Resolved with improvement of BP Qualifiers: Headache type: unspecified Headache chronicity pattern: acute headache Intractability: not intractable Qualified Code(s): R51 - Headache Hospital course: Mr. Urrutia is a 57 year old male see assessment and plan for hospital course Discharge discussed with: patient, family, nurse, salon sales consultant - Time Spent with Patient Total time spent providing and/or coordinating discharge services: Less than 30 minutes - Discharge Medications Prescriptions: Clopidogrel [Plavix] 75 mg PO DAILY 30 Days #30 tablet Lisinopril [Zestril] 2.5 mg PO DAILY 30 Days #15 tablet Home Medications: Aspirin [Lo-Dose Aspirin EC] 81 mg PO DAILY 07/04/16 [History] Carvedilol [Coreg] 12.5 mg PO BIDWM #60 tablet 07/12/16 [Rx] Cetirizine HCl [Zyrtec] 10 mg PO DAILY 08/17/17 [History] Atorvastatin Calcium [Lipitor] 20 mg PO QPM 07/16/18 [History] Multivit-Min/FA/Lycopen/Lutein [A Thru Z Select Multivit Tab] 1 tab PO DAILY [History] Clopidogrel [Plavix] 75 mg PO DAILY 30 Days #30 tablet 07/17/18 [Rx] Lisinopril [Zestril] 2.5 mg PO DAILY 30 Days #15 tablet 07/17/18 [Rx] Allergies/Adverse Reactions: 3 Allergy/AdvReac Type Severity Reaction Status Date / Time No Known Allergies Allergy Verified 08/17/17 10:58 Date of admission: 07/16/18 14:46 Primary care physician: Estefani Lopez Discharging clinician: Johnny Hirsch Anticipated date of discharge: 07/17/18 - Constitutional Vitals: Temp Pulse Resp BP Pulse Ox 99.3 F 68 16 145/75 97 07/17/18 11:29 07/17/18 11:29 07/17/18 11:29 07/17/18 11:29 07/17/18 11:29 Exam: . - Head Head exam: Present: atraumatic, normocephalic - Eye Eye exam: Present: PERRL, conjuntiva pink, sclera anicteric Pupils: Present: PERRL - Neck Neck exam general surgery: Present: supple, trachea midline. Absent: lymphadenopathy - Respiratory Respiratory exam: Present: CTAB. Absent: accessory muscle use, rales, rhonchi, wheezes - Cardiovascular Cardiovascular exam: Present: RRR, +S1, +S2. Absent: diastolic murmur, gallop, rubs, systolic murmur - GI/Abdominal GI/Abdominal exam: Present: normal bowel sounds, soft, no peritoneal signs. Absent: distended, tenderness - Extremities Exam Extremities exam: Present: warm, radial pulses palpable and symmetrical. Absent : calf tenderness, cyanotic, pedal edema - Neurological Exam Neurological exam: Present: CN II-XII intact, oriented X3, no focal deficits. Absent: pronater drift, facial droop, speech deficit - Skin Skin exam: Present: dry, intact - Patient Status Disposition: Home, Self-Care Condition: Good Functional capacity at discharge: independent ambulation Overall status at discharge: patient is back to baseline - Discharge Instructions Instructions: Myocardial Infarction (DC) Follow Up With: Kita Harding DO [Primary Care Provider] - 07/24/18 9:30 am - Diet and Activity Activity: increase activity as tolerated, resume usual activities as tolerated Diet: low fat, low cholesterol, low salt diet
--- NOTE | 2018-07-18 16:10 | Electrocardiograph Report ---
[address] [address] Test Date: 2018-07-16 Pat Name: Steven Urrutia Department: 113 Room: 3B39 Gender: M Auditing Clerk: : 1960 Requested By: Jb Garza Order Number: [id number] Reading MD: Marlee Hmamonds Measurements Intervals [place] Rate: 76 P: 58 WA: 202 QRS: -28 QRSD: 88 T: 39 QT: 386 QTc: 417 Interpretive Statements SINUS RHYTHM POSSIBLE LEFT ATRIAL ENLARGEMENT BORDERLINE LEFT AXIS DEVIATION POSSIBLE RIGHT VENTRICULAR CONDUCTION DELAY Electronically Signed On 07-18-2018 16:09:09 EDT by Marlee Hammonds
--- NOTE | 2018-07-18 16:10 | Electrocardiograph Report ---
[address] [address] Test Date: 2018-07-16 Pat Name: Steven Urrutia Department: 113 Room: 3B39 Gender: M Administration Professional: : 1960 Requested By: Shon Washington Order Number: [id number] Reading MD: Marlee Hammonds Measurements Intervals [place] Rate: 72 P: 63 ME: 201 QRS: -27 QRSD: 89 T: 30 QT: 386 QTc: 409 Interpretive Statements SINUS RHYTHM POSSIBLE LEFT ATRIAL ENLARGEMENT BORDERLINE LEFT AXIS DEVIATION POSSIBLE RIGHT VENTRICULAR CONDUCTION DELAY Electronically Signed On 07-18-2018 16:08:59 EDT by Marlee Hammonds
--- NOTE | 2018-07-18 16:16 | Electrocardiograph Report ---
[address] [place], [place] [address] Test Date: 2018-07-15 Pat Name: Steven Urrutia Department: EXAM2 Room: 3B39 Gender: M Datapower Developer: : 1960 Requested By: Dick Deluca Order Number: [id number] Reading MD: aMrlee Hammonds Measurements Intervals [place] Rate: 73 P: 51 IA: 189 QRS: 9 QRSD: 94 T: 63 QT: 398 QTc: 439 Interpretive Statements Sinus rhythm Electronically Signed On 07-18-2018 16:14:31 EDT by Marlee Hammonds
--- NOTE | 2018-07-18 16:17 | Electrocardiograph Report ---
[address] [address] Test Date: 2018-07-15 Pat Name: Steven Urrutia Department: EXAM2 Room: 3B39 Gender: M Clinical Care Coordinator: : 1960 Requested By: Dick Deluca Order Number: [id number] Reading MD: Marlee Hammonds Measurements Intervals [place] Rate: 57 P: 56 MS: 186 QRS: 5 QRSD: 100 T: 37 QT: 433 QTc: 422 Interpretive Statements Sinus rhythm Electronically Signed On 07-18-2018 16:15:53 EDT by Marlee Hammonds
== END 2018-07-17 15:17 | disposition home or self-care (01) | DRG 282 ==
LOC: EMEROOARM 21:49 → 3BNU 21:49
PROVIDERS: ADMIT Internal Medicine; ATTEND Internal Medicine